=== PATIENT | male | born 1970 | race Caucasian/White ===

== ENCOUNTER 2020-06-01 05:19 | Day surgery (SDC) | payer OTHER ==
[~2020-06-01] VITALS: Ht 180.3 cm; Wt 86.4 kg
--- NOTE | ~2020-06-01 | HP ---
PATIENT: VEE HA MEDICAL RECORD: [id number] ACCOUNT: [id number] LOCATION:[facility] : 72 ADMISSION DATE: 06/01/20 PCP: No PCP HISTORY AND PHYSICAL EXAMINATION CHIEF COMPLAINT: Hernia. HISTORY OF PRESENT ILLNESS: The patient has a symptomatic enlarging left inguinal hernia. He has undergone a right inguinal hernia repair in the past. I specifically discussed with him that we would be using mesh. The risks, possible complications, and alternatives of the procedure were explained to the patient. He elects to proceed. The discussion specifically included, but was not limited to, bleeding requiring emergency reoperation, infection, hernia recurrence as well as chronic pain. I saw the patient during a telehealth visit. PAST MEDICAL AND SURGICAL HISTORY: Heart murmur, right inguinal hernia repair with mesh, hepatitis C, hypertension, gastroesophageal reflux, depression. HOME MEDICATIONS: Reviewed. ALLERGIES: No known drug allergies. REVIEW OF SYSTEMS: Negative for diabetes or thyroid problems. PHYSICAL EXAMINATION: GENERAL: The patient does not appear acutely ill. He does not appear chronically ill. VITAL SIGNS: Reviewed. EARS: External ears appear normal. EYES: Extraocular movements are intact. NECK: Trachea is midline. CHEST: No intercostal retractions. PULMONARY: Nonlabored. No stridor. ABDOMEN: Left inguinal hernia, which is at least partially reducible. PROCEDURE: Symptomatic enlarging left inguinal hernia. PLAN: Will be open left inguinal hernia repair with mesh. TRANSINT:[id number] Voice Confirmation ID: [id number] DOCUMENT ID: [id number] TIAGO IRVING MD CC: [id number] DICTATION DATE: 06/01/20 1040 HAND CROWN POUNCER: 06/01/20 1112 [facility] [address] [place] [address]
--- NOTE | ~2020-06-01 | OP ---
PATIENT NAME: VEE HA MEDICAL RECORD: [id number] :72 LOCATION:D.FORMERLY [facility] [place] ADMISSION DATE: SURGEON: BARRY IRVING MD DATE OF OPERATION: 06/01/2020 PREOPERATIVE DIAGNOSIS: Symptomatic enlarging left inguinal hernia. POSTOPERATIVE DIAGNOSIS: Symptomatic enlarging left indirect inguinal hernia, not incarcerated. PROCEDURE: Open repair of enlarging symptomatic non-incarcerated left indirect inguinal hernia. SURGEON: Barry Irving MD STOCK WORKER AND DELIVERER: None. BLOOD LOSS: Minimal. ANESTHESIA: General. COMPLICATIONS: None. The risks, possible complications, and alternatives to the procedure were explained to the patient. He elects to proceed. The discussion specifically included, but was not limited to, bleeding requiring emergency reoperation, infection, chronic pain as well as recurrence. OPERATIVE COURSE: The patient was conveyed to the operating room electively on 06/01/2020. General anesthesia was induced by the anesthesia staff. The abdomen and genitals were sterilely prepped and draped. A transverse incision was accomplished in the left inguinal area. Sharp dissection was carried down through skin and subcutaneous tissue as well as Greg fascia. I then sharply cleaned overlying connective tissue from the external oblique aponeurosis. The external oblique aponeurosis was incised along the direction of its fibers. I bluntly dissected down through the internal oblique and transverse abdominis muscles. A preperitoneal pocket was fashioned bluntly. Indirect hernia was reduced in its entirety. There was no direct component. No femoral component. I then cut two ovals out of a polypropylene mesh and sutured the two holes together one on top of the other with a #1 Surgidac. The mesh was then placed in the preperitoneal space. Once I was satisfied with the placement of the mesh, I allowed the internal oblique and transverse abdominis muscles come together. These were sutured together with multiple interrupted horizontal mattress 0 Surgidac incorporating that portion of the underlying mesh. At no time during this operation was there any apparent injury. External oblique aponeurosis was then closed with running running 0 Vicryls. Greg's fascia was approximated with interrupted 3-0 Vicryl. The subdermis was approximated with interrupted 3-0 Vicryl. The skin was approximated with a running intracuticular 3-0 Vicryl. Benzoin and Steri-Strips were applied. The patient was then extubated and conveyed to post-anesthesia care unit where he was in stable condition. OPERATIVE REPORT [id number] VEE HA TRANSINT:[id number] Voice Confirmation ID: [id number] DOCUMENT ID: [id number] BARRY IRVING MD CC: [id number] DICTATION DATE: 06/01/202038 SUPERVISOR ALUMINUM FABRICATION: 06/02/20 0104 [facility] 06/01/20 [place] [id number] [place] [id number]
[2020-06-01 06:43] LABS: HEMATOCRIT 40.5 % (42.0-54.0); HEMOGLOBIN 13.9 g/dL (13.5-17.5); MCH 31.2 pg (26.0-34.0); MCHC 34.3 g/dL (31.0-37.0); MCV 90.8 fL (80.0-100.0); MEAN PLATELET VOLUME 10.3 fL (7.4-10.4); RBC 4.46 10x6/uL (4.20-6.10); RDW 13.1 % (11.5-14.5); WBC 5.7 10x3/uL (4.8-10.8)
[2020-06-01 06:49] LABS: CALC OSMOLALITY 284 mosm/kg (275-300); CALCIUM 9.1 mg/dL (8.5-10.1); CHLORIDE - SERUM 107 mmol/L (98-107); CREATININE - SERUM 0.8 mg/dL (0.6-1.3); GLUCOSE 95 mg/dL (74-106); POTASSIUM - SERUM 3.8 mmol/L (3.5-5.1); SODIUM 143 mmol/L (136-145); UREA NITROGEN 12 mg/dL (7-18); eGFR NON AFRICAN AMERICAN > 90 mL/min (90-120)
[2020-06-01] MEDS ORDERED: VERELAN120 MG PO (08:40)
[2020-06-01] MEDS ORDERED: LISINOPRIL20 MG PO (08:40)
[2020-06-01] MEDS ORDERED: TOPROL XL100 MG PO (08:41)
[2020-06-01] MEDS ORDERED: EFFEXOR XR150 MG PO (08:41)
[2020-06-01] MEDS ORDERED: BAYER CHEWABLE81 MG PO (08:41)
[2020-06-01] MEDS ORDERED: OMEPRAZOLE20 M1 PO (08:41)
[2020-06-01] MEDS ORDERED: TOPAMAX50 MG PO (08:42)
[2020-06-01 08:50] VITALS: BP 117/102; Ht 180.3 cm; Wt 86.4 kg
--- NOTE | 2020-06-01 13:18 | NUR ---
1310 MEDS GIVEN E-MAR STATES, COLA REFILLED, CRITERIA TO MEET PRIOR TO BEING DISCHARGED GIVEN. GUARDS AT SIDE.
== END 2020-06-01 15:00 | disposition home or self-care (01) ==
LOC: D.OPS 05:19
PROVIDERS: Anesthesiology; ATTEND Surgery
DX: K40.90 Unilateral inguinal hernia, without obstruction or gangrene, not specified as recurrent (principal); R01.1 Cardiac murmur, unspecified; B19.20 Unspecified viral hepatitis C without hepatic coma; I10 Essential (primary) hypertension; K21.9 Gastro-esophageal reflux disease without esophagitis; F32.9 Major depressive disorder, single episode, unspecified